=== PATIENT | female | born 1975 | race African-American/Black ===

== ENCOUNTER 2018-06-26 04:55 | Day surgery (SDC) | payer OTHER ==
[2018-06-25 12:09] VITALS: BMI 39.9
--- NOTE | 2018-06-26 10:25 | EKG ---
Test Reason : Blood Pressure : / mmHG Vent. Rate : 066 BPM Atrial Rate : 066 BPM P-R Int : 114 ms QRS Dur : 078 ms QT Int : 410 ms P-R-T Axes : 000 058 044 degrees QTc Int : 429 ms SINUS RHYTHM WITH ectopic atrial beats/ atrial rhythm OTHERWISE NORMAL ECG NO PREVIOUS ECGS AVAILABLE Confirmed by WALDO SCOTT MD ([id number]) on 06/26/2018 10:25:26 AM Referred By: JAMES ALEXANDER DR Confirmed By:WALDO SCOTT MD
[2018-06-26] MEDS ORDERED: LIDOCAINE 1%-EPI 1:100,000 30 ML MDV IJ ONE (10:38)
[2018-06-26] MEDS ORDERED: MICROFIBRILLAR COLLAGEN 1 GM EACH ONE (10:38)
[2018-06-26] MEDS ORDERED: PROPOFOL 20 ML ONE ×6 (11:11→12:23)
[2018-06-26] MEDS ORDERED: SUCCINYLCHOLINE CHLORIDE 200 MG/10 ML VIAL ONE (11:12)
[2018-06-26] MEDS ORDERED: MIDAZOLAM HCL 2 MG/2 ML SINGLE DOSE VIAL ONE (11:12)
[2018-06-26] MEDS ORDERED: fentaNYL CITRATE 250 MCG/5 ML VIAL ONE (11:12)
[2018-06-26] MEDS ORDERED: ceFAZolin SODIUM 1 GM VIAL IVPB ONE (11:25)
[2018-06-26] MEDS ORDERED: ROCURONIUM BROMIDE 50 MG/5 ML VIAL ONE (11:27)
[2018-06-26] MEDS ORDERED: DEXAMETHASONE SOD PHOSPHATE 4 MG/1 ML VIAL ONE (11:41)
[2018-06-26] MEDS ORDERED: ceFAZolin SODIUM 1 GM VIAL ONE (11:41)
[2018-06-26] MEDS ORDERED: LIDOCAINE 1%/EPI 1:100000 (20 ML MULTI DOSE VIAL) IJ ONE (11:57)
[2018-06-26] MEDS ORDERED: LIDOCAINE HCL/PF 2% SDV 5ML VIAL ONE (13:10)
[2018-06-26] MEDS ORDERED: ONDANSETRON 4 MG/2 ML VIAL IVPUSH PRN (13:53)
[2018-06-26] MEDS ORDERED: LACTATED RINGERS SOLUTION 1,000 ML IV SCH ×2 (14:00→17:00)
[2018-06-26] MEDS ORDERED: ACETAMINOPHEN INJECTION 100 ML IVPB ONE (14:01)
[2018-06-26] MEDS: ACETAMINOPHEN 1000 MG/100 ML VIAL (NON FORMULARY) IVPB ONE ×2 (14:05→21:29)
--- NOTE | 2018-06-26 14:11 | OP ---
Operative Note - Note: Operative Date: 06/26/18 Pre-Operative Diagnosis: Thyroid goiter Operation: Total thyroidectomy Findings: as dictated Post-Operative Diagnosis: Same as Pre-op Surgeon: Emmett Martinez Immersion Metalcleaner: Naheed Davis Anesthesiologist/JACK STRIP ASSEMBLER: Obdulia Mg Anesthesia: General, Local Specimens Removed: right and left thyroid lobes Estimated Blood Loss (mls): 50 (ml) Fluid Volume Replaced (mls): 1 (L LR) Operative Report Dictated: Yes
[2018-06-26] MEDS: CALCIUM CARBONATE SUSPENSION - 500 MG/5 ML ML PO ONE ×2 (15:46→22:51)
[2018-06-26] MEDS: CALCITRIOL 0.25 MCG CAPSULE (FP) PO ONE ×2 (15:46→21:29)
--- NOTE | 2018-06-26 16:55 | PN ---
Progress Note (short form) - Note Progress Note: Called by A[facility] RN, pt planned for d/c to home however having some light headedness with oob/ambulation. Vitals stable, no hypotension, no significant blood loss in case. Neck soft no swelling or hematoma present. Pt speaking in full sentences without issue. Will keep pt for 23hr observation Calcium level ordered for AM Synthroid 200mcg, calcitriol 0.5mcg and calcium carbonate 1500mg ordered for AM at 10 Home meds ordered Pain control as ordered Early ambulation, scds Regular diet above d/w attending Dr Martinez, pt and
[2018-06-26] MEDS ORDERED: oxyCODONE HCL 5 MG TABLET ONE (18:35)
[2018-06-26] MEDS ORDERED: oxyCODONE HCL 5 MG TABLET PO ONE (18:40)
[2018-06-26] MEDS: oxyCODONE HCL 5 MG TABLET PO PRN (22:13)
[2018-06-27] MEDS: ACETAMINOPHEN 325 MG TABLET (FP) PO PRN ×2 (02:18→09:24)
[2018-06-27] MEDS: oxyCODONE HCL 5 MG TABLET PO PRN ×2 (02:18→09:23)
[2018-06-27 03:42] VITALS: PULSE 66
[2018-06-27] MEDS ORDERED: LEVOTHYROXINE NA 100 MCG TABLET (FP) PO ONE (07:00)
--- NOTE | 2018-06-27 07:06 | OP ---
DATE OF OPERATION: 06/26/2018 SURGICAL ATTENDING: Catherine Ramirez MD PREOPERATIVE DIAGNOSIS: Thyroid goiter. POSTOPERATIVE DIAGNOSIS: Thyroid goiter. ANESTHESIA: General endotracheal. PROCEDURE: Total thyroidectomy. DESCRIPTION OF PROCEDURE: The patient was taken into the operating room, placed in a supine position, endotracheally intubated. Shoulder roll was placed. Neck ultrasound was performed showing bilateral thyroid enlargement left greater than right. Local anesthesia was administered and a 7-cm horizontal incision was made in a mid neck skin crease and carried down through subcutaneous tissues and platysma. Subplatysmal flaps were raised superiorly and inferiorly and flap hooks were placed for exposure. The median raphe was incised and the strap muscles elevated off the thyroid gland. Dissection began on the right side where the recurrent laryngeal nerve, superior laryngeal nerve and parathyroid glands were identified and preserved. The superior, posterior and inferior attachments of the thyroid gland were transected. The isthmus was transected and in this way the right thyroid lobe was removed. It was checked for parathyroid tissue and none was found. Dissection then continued on the left side where the recurrent laryngeal nerve, superior laryngeal nerve and parathyroid glands were identified and preserved. The posterior, superior and inferior attachments were transected and the thyroid gland was taken off the trachea. In this way the left thyroid lobe was removed. It was checked for parathyroid tissue and none was found. It was then taken off the field and sent to Pathology for permanent evaluation. Hemostasis was achieved with electrocautery and Avitene. Note that the recurrent laryngeal nerves were monitored throughout the operation and were intact with good signals at the conclusion of the surgery. The wound was then closed in 3 layers. Dermabond was placed. The patient was then awakened, extubated and taken to recovery in stable condition. Dr. Ramirez, the attending surgeon, was present throughout the entire procedure. CATHERINE RAMIREZ M.D. [id number]
[2018-06-27] MEDS ORDERED: PT OWN MED DRAWER 7, Y5N ONE (09:08)
[2018-06-27] MEDS ORDERED: CALCITRIOL 0.25 MCG CAPSULE (FP) PO SCH (10:00)
[2018-06-27] MEDS ORDERED: NIFEdipine E.R 60 MG TABLET (UD) PO SCH (10:00)
[2018-06-27] MEDS ORDERED: HYDROCHLOROTHIAZIDE 12.5 MG CAPSULE (FP) PO SCH (10:00)
[2018-06-27] MEDS ORDERED: NIFEDIPINE 120 MG PO SCH (10:00)
[2018-06-27] MEDS ORDERED: CALCIUM CARBONATE 650 MG TABLET PO SCH (10:00)
[2018-06-27 13:16] VITALS: BP 150/96; TEMP 98.4
--- NOTE | 2018-06-29 07:42 | SURG ---
Surgery Material Checker Note Material Checker: Naheed Davis PA-C (Suzy) Date of Service: 06/26/18 Diagnosis: Thyroid goiter Procedure: Total thyroidectomy I was present for the entirety of the operative procedure. For further detail, please refer to operative report. Visit type - Case Type Case Type: Scheduled - Emergency Emergency Visit: No - New patient This patient is new to me today: Yes Date on this admission: 06/29/18 - Critical Care Critical Care patient: No
--- NOTE | 2018-07-01 14:23 | PATH ---
Surgical Pathology Report Patient Name: RICCO FAY [facility]. Rec. #: [id number] /Age/Gender: 1975 (Age: 43) / F Account: [id number] Location: [facility] SURGICAL Taken: 06/26/2018 Received: 06/26/2018 Reported: 07/01/2018 Physicians: Emmett Martinez M.D. Specimen(s) Received A: RIGHT THYROID LOBE B: LEFT THYROID LOBE Clinical History Hypothyroidism, non-toxic multinodular goiter Final Diagnosis A. RIGHT THYROID LOBE, HEMITHYROIDECTOMY: THYROID TISSUE WITH MULTINODULAR GOITER. B. LEFT THYROID LOBE, HEMITHYROIDECTOMY: THYROID TISSUE WITH MULTINODULAR GOITER. Electronically Signed Omer Vallecillo M.D. Gross Description A. Received in formalin labeled "right thyroid lobe," is a 33 g, 6.5 x 3.3 x 2.8 cm intact thyroid lobe. The outer capsule is red-brown and smooth. Sectioning reveals multifocal hemorrhagic and colloid nodules. The remaining thyroid parenchyma is red-brown and beefy. Conveyancer sections are sequentially submitted in 8 cassettes. B. Received in formalin labeled "left thyroid lobe," is a 116 g, 9.5 x 6.0 x 4.2 cm intact thyroid lobe. The outer capsule is red-brown and smooth. Sectioning reveals multifocal heterogeneous, focally hemorrhagic colloid nodules. The remaining thyroid parenchyma is red-brown and beefy. Conveyancer sections are sequentially submitted in 10 cassettes. /06/29/2018 saudi/06/29/2018
== END 2018-06-27 13:24 | disposition home or self-care (01) ==
LOC: JASU-SURG 04:55 → J8W 20:29 → JASU-SURG 06-27 13:24
PROVIDERS: ATTEND Surgery
PROC: 0GBJ0ZZ Excision of Thyroid Gland Isthmus, Open Approach (ICD-10-PCS; 2018-06-26)
PROC: 0GTK0ZZ Resection of Thyroid Gland, Open Approach (ICD-10-PCS; principal; 2018-06-26 10:30)
DX: E04.2 Nontoxic multinodular goiter (principal)
CPT/HCPCS: 36415; 82310; 82330; 83970; 84703; 88307-TC; 93005; 93010; 94760; J0131